=== PATIENT | female | born 1955 | race Hispanic/Latino ===

== ENCOUNTER 2019-04-28 11:37 | Outpatient (CLI) | payer MEDICARE ==
--- NOTE | 2019-04-28 13:04 | XRay Report ---
Right RIBS, 2 views INDICATION: Right rib pain after fall. COMPARISON: None. IMPRESSION: Nondisplaced fractures of the distal 8th and 9th ribs are identified. The remaining righ t ribs are grossly intact. No evidence for pneumothorax. Mild osteopenia is suspected. Signer Name: Kenneth Riggins Jr, MD Signed: 04/28/2019 12:59 PM Workstation Name: [id number]
--- NOTE | 2019-04-28 13:05 | XRay Report ---
Facial bones, 4 views INDICATION: FACIAL CONTUSION/FALL. COMPARISON: None. IMPRESSION: The paranasal sinuses are well-aerated. The orbital cavities are symmetric and unremarka ble. The mandible and nasal bones and zygomas are intact. No facial fracture is appreciated on x-ray. Signer Name: Kenneth Riggins Jr, MD Signed: 04/28/2019 1:00 PM Workstation Name: [id number]
--- NOTE | 2019-04-28 17:05 | XRay Report ---
CHEST 2 VIEWS INDICATION / CLINICAL INFORMATION: RIB PAIN/RIB CONTUSION/RIGHT. COMPARISON: None available. FINDINGS: SUPPORT DEVICES: None. HEART / MEDIASTINUM: The heart size and pulmonary vasculature are normal. LUNGS / PLEURA: There is minimal linear subsegmental atelectasis or scarring in the right lateral benedicto g base. There is a calcified left infrahilar lymph node. No pneumothorax. ADDITIONAL FINDINGS: There is a fracture of the right seventh rib anteriorly. IMPRESSION: Minimal right basilar subsegmental atelectasis/scarring. Acute fracture of the right sonya nth anterior rib. Signer Name: Surjit Christie MD Signed: 04/28/2019 5:01 PM Workstation Name: [id number]
== END 2019-04-28 11:38 | disposition home or self-care (01) ==
LOC: SPVIMAG 11:37
PROVIDERS: ATTEND Internal Medicine
DX: S22.31XA Fracture of one rib, right side, initial encounter for closed fracture (principal); S20.211A Contusion of right front wall of thorax, initial encounter; S00.83XA Contusion of other part of head, initial encounter; M85.88 Other specified disorders of bone density and structure, other site; W19.XXXA Unspecified fall, initial encounter; Y93.89 Activity, other specified; Y92.89 Other specified places as the place of occurrence of the external cause; Y99.8 Other external cause status
CPT/HCPCS: 70150; 71046